=== PATIENT | female | born 1940 | race Caucasian/White ===

== ENCOUNTER 2022-11-05 10:45 | Observation (INO) | payer MEDICARE ==
[2022-11-05] MEDS ORDERED: Sodium Chloride 0.9% 500 ML IV ONE (11:50)
[2022-11-05] MEDS ORDERED: Sodium Chloride 0.9% 1,000 ML IV ONE (11:50)
[2022-11-05] MEDS ORDERED: diazePAM 5 MG/ML MDV ONE (13:17)
[2022-11-05] MEDS ORDERED: diazePAM 5 MG/ML MDV IV ONE (13:23)
[2022-11-05] MEDS ORDERED: Ondansetron 4 MG/2 ML SDV IVPUSH PRN (19:14)
[2022-11-05] MEDS ORDERED: Acetaminophen 650 MG Tab.ER ONE (19:59)
[2022-11-05] MEDS: Acetaminophen 325 MG Tab PO PRN (20:00)
[2022-11-06] MEDS: Acetaminophen 325 MG Tab PO PRN (03:24)
== END 2022-11-06 09:51 | disposition home or self-care (01) ==
LOC: LB.ED 10:45 → LB.MS 18:40 → UNDOADMOB 18:40 → LB.MS 18:45
PROVIDERS: ADMIT Emergency Medicine; ATTEND Emergency Medicine
DX: H81.12 Benign paroxysmal vertigo, left ear (principal); Z20.822 Contact with and (suspected) exposure to COVID-19; Z88.0 Allergy status to penicillin; Z88.6 Allergy status to analgesic agent
CPT/HCPCS: 36415; 70450; 80053; 81001; 83605; 84484; 85025; 87804; 87804-59; 93005; 96361; 96374; 96376; 99285-25; A9270-GY; G0378; J3360; J7030; U0002

== ENCOUNTER 2023-06-02 14:36 | Emergency (ER) | payer MEDICARE ==
[2023-06-02] MEDS ORDERED: Sodium Chloride 0.9% 10 ML Syringe FLUSH PRN (15:40)
[2023-06-02] MEDS ORDERED: Ondansetron 4 MG/2 ML SDV IVPUSH ONE (15:40)
[2023-06-02] MEDS ORDERED: Sodium Chloride 0.9% 500 ML IV ONE (15:48)
[2023-06-02 15:54] LABS: BASOPHILS ABSOLUTE AUTO 0.03 K/uL (0.02-0.10); BASOPHILS PERCENT AUTO 0.4 % (0.0-0.5); EOSINOPHILS ABSOLUTE AUTO 0.03 K/uL (0.04-0.40); EOSINOPHILS PERCENT AUTO 0.4 % (1.0-5.0); HEMATOCRIT 33.8 % (37.0-47.0); HEMOGLOBIN 11.5 g/dL (11.5-16.5); LYMPHOCYTES ABSOLUTE AUTO 1.02 K/uL (1.50-4.00); LYMPHOCYTES PERCENT AUTO 13.1 % (20.0-40.0); MEAN CORPUSCULAR HEMOGLOBIN 33.3 pg (27.0-32.0); MEAN CORPUSCULAR VOLUME 98 fL (76-96); MONOCYTES ABSOLUTE AUTO 0.34 K/uL (0.20-0.80); MONOCYTES PERCENT AUTO 4.4 % (3.0-10.0); NEUTROPHILS ABSOLUTE AUTO 6.34 K/uL (2.00-7.50); NEUTROPHILS PERCENT AUTO 81.7 % (45.0-70.0); PLATELET COUNT,PLT 208 K/uL (150-500); RED BLOOD CELL COUNT 3.45 M/uL (3.80-5.80); RED CELL DISTRIBUTION WIDTH 12.4 % (11.0-16.0); WHITE BLOOD CELL COUNT,WBC 7.8 K/uL (4.0-11.0)
[2023-06-02 16:03] LABS: A/G RATIO 1.2 (0.8-2.0); ANION GAP 15.7 mmol/L (5.0-15.0); BILIRUBIN TOTAL 0.7 mg/dL (0.0-1.0); BUN/CREATININE RATIO 20.5 (6-25); CALCIUM 8.8 mg/dL (8.5-10.1); CARBON DIOXIDE,CO2 23.5 mmol/L (21.0-32.0); CREATININE 1.17 mg/dL (0.55-1.02); EST CRCL DRUG DOSING (CG) 29.83 mL/min; MAGNESIUM 1.8 mg/dL (1.8-2.4); POTASSIUM,K 4.2 mmol/L (3.5-5.1); PROTEIN TOTAL,TP 7.4 g/dL (6.4-8.2)
[2023-06-02] MEDS ORDERED: Ondansetron 4 MG Tab.DIS ONE (16:30)
== END 2023-06-02 16:50 | disposition home or self-care (01) ==
LOC: LB.ED 14:36
DX: K52.9 Noninfective gastroenteritis and colitis, unspecified (principal); Z79.899 Other long term (current) drug therapy; Z88.1 Allergy status to other antibiotic agents; Z88.8 Allergy status to other drugs, medicaments and biological substances
CPT/HCPCS: 36415; 80053; 83735; 85025; 96361; 96374; 99283; 99284-25; J2405; J7040; Q0162

== ENCOUNTER 2024-12-30 12:09 | Emergency (ER) | payer MEDICARE ==
[2024-12-30] MEDS: Lidocaine 1% with EPINEPHrine 1:100,000 20 ML MDV INJECT ONE (12:51)
== END 2024-12-30 13:15 | disposition home or self-care (01) ==
LOC: LB.ED 12:09
DX: S01.01XA Laceration without foreign body of scalp, initial encounter (principal); Z88.1 Allergy status to other antibiotic agents; Z88.6 Allergy status to analgesic agent; Z79.899 Other long term (current) drug therapy; W00.0XXA Fall on same level due to ice and snow, initial encounter
CPT/HCPCS: 12002; 99283; J2004